=== PATIENT | female | born 1955 | race Caucasian/White ===

== ENCOUNTER 2018-10-14 11:35 | Emergency (ER) | payer BC ==
[~2018-10-14] VITALS: Ht 160 cm; Wt 93.0 kg
[2018-10-14] MEDS ORDERED: Solu-MEDROL 125mg Inj IVP ONE (11:45)
[2018-10-14] MEDS ORDERED: DiphenhydrAMINE 50mg/ml Inj IVP ONE (11:45)
[2018-10-14] MEDS ORDERED: ATORVASTATIN CA10 MG ORAL (11:45)
[2018-10-14 11:57] VITALS: BP 136/76
[2018-10-14] MEDS ORDERED: PEPCID AC20 M2 PO (12:40)
[2018-10-14] MEDS ORDERED: MEDROL DOSEPAK4 MG ORAL (12:40)
[2018-10-14] MEDS ORDERED: BENADRYL25 MG ORAL (12:40)
[2018-10-14 12:48] VITALS: BP 136/76
--- NOTE | 2018-10-14 14:26 | Emergency Room Report ---
History of Present Illness General Chief Complaint: Allergic Reaction Source: Patient, Medical Record Present Illness HPI Patient persist with reports and complaint of allergic reaction Has increased itching to her hands and feet also her lower neck Patient reports last time this happened was from a possible food bar Which again might be the case denies any chest pain or shortness of breath denies any vomiting or diarrhea Denies any difficulty breathing Denies any sensation of swelling in the throat Allergies: Coded Allergies: AMOXICILLIN (Verified Allergy, Unknown, 10/14/18) CLAVULANIC ACID (Verified Allergy, Unknown, 10/14/18) Patient History Past Medical History: see triage record Pertinent Family History: none Last Menstrual Period: menopause Reviewed Nursing Documentation: PMH: Agreed; PSxH: Agreed Nursing Documentation-PMH Past Medical History: No History, Except For Hx Cardiac Problems: No - hyperlipidemia Review of Systems All Other Systems: negative except mentioned in HPI Physical Exam Vital Signs Date Time Temp Pulse Resp B/P (MAP) Pulse Ox O2 Delivery O2 Flow Rate FiO2 10/14/18 11:39 97.5 95 18 130/78 98 Room Air Sp02 EP Interpretation: reviewed, normal General Appearance: other - Patient appears uncomfortable itching Head: normocephalic, atraumatic Eyes: bilateral eye PERRL, bilateral eye EOMI ENT: hearing grossly normal, normal pharynx, TMs + canals normal, uvula midline Neck: full range of motion, supple, no meningismus, no bony tend Respiratory: lungs clear, normal breath sounds, no rhonchi, no respiratory distress, no retraction, no accessory muscle use Cardiovascular #1: normal peripheral pulses, regular rate, rhythm, no edema, no gallop, no JVD, no murmur Gastrointestinal: normal bowel sounds, non tender, soft, no mass, no organomegaly, non-distended, no guarding, no hernia, no pulsatile mass, no rebound Genitourinary: no CVA tenderness Musculoskeletal: normal inspection Neurologic: oriented x3, responsive, narrow fabric loom fixer III-XII nml as tested, motor strength/ tone normal, sensory intact Psychiatric: mood/affect normal Skin: other - Erythema and some urticaria noticed on both hands and feet, there are some mild erythema in the lower neck fold as well airway remains patent no evidence of stridor Lymphatic: normal inspection, no adenopathy Medical Decision Making Diagnostic Impression: Primary Impression: Allergic reaction ER Course Given the patient's history and presentation along with her clinical exam Patient has IV established is placed on cardiac monitoring and has Aggressive intervention Patient did not require epinephrine on reevaluation has done significantly better and is stable for close outpatient follow-up Last Vital Signs Date Time Temp Pulse Resp B/P (MAP) Pulse Ox O2 Delivery O2 Flow Rate FiO2 10/14/18 12:48 98.0 62 16 136/76 95 Room Air Status: improved Disposition: HOME, SELF-CARE Condition: Improved Scripts Diphenhydramine Hcl* (BENADRYL*) 25 Mg Capsule 25 MG ORAL Q6H PRN for Itching for 7 Days, CAP Prov: Violet Thompson DO 10/14/18 Famotidine (PEPCID AC) 20 Mg Tablet 20 MG PO DAILY for 7 Days, TAB Prov: Violet Thompson DO 10/14/18 Methylprednisolone (Methylprednisolone*) 4MG Dspk 4 MG ORAL DIRECTED for 6 Days, #21 EA 0 Refills Day 1: Two tablets before breakfast, one after lunch, one after dinner, and two at bedtime. If started late in the day, take all six tablets at once or divide into two or three doses, unless otherwise directed by prescriber. Day 2: One tablet before breakfast, one after lunch, one after dinner, and two at bedtime Day 3: One tablet before breakfast, one after lunch, one after dinner, and one at bedtime Day 4: One tablet before breakfast, one after lunch, and one at bedtime Day 5: One tablet before breakfast and one at bedtime Day 6: One tablet before breakfast Prov: Violet Thompson DO 10/14/18 Referrals: NON PHYSICIAN (PCP) Patient Instructions: Allergies, [id number], Food Allergy, [id number] Additional Instructions: Patient is provided with the discharge instructions notified to follow up with primary doctor in the next 2-3 days otherwise return to the er with any worsening symptoms. Please note that this report is being documented using [employer] technology. This can lead to erroneous entry secondary to incorrect interpretation by the dictating instrument. Violet Thompson DO Oct 14, 2018 14:26
== END 2018-10-14 12:48 | disposition home or self-care (01) ==
LOC: EMR 12:39
DX: T78.40XA Allergy, unspecified, initial encounter (principal); X58.XXXA Exposure to other specified factors, initial encounter; E78.5 Hyperlipidemia, unspecified; Z78.0 Asymptomatic menopausal state; Z88.1 Allergy status to other antibiotic agents; Z88.8 Allergy status to other drugs, medicaments and biological substances; Z91.012 Allergy to eggs
CPT/HCPCS: 96374; 96375; 99283; J1200; J2930; S0028